=== PATIENT | male | born 1990 | race Caucasian/White ===

== ENCOUNTER 2018-07-30 08:18 | Emergency (ER) | payer MEDICAID ==
[~2018-07-30] VITALS: Ht 175.3 cm; Wt 68.2 kg
[~2018-07-30 08:18] MED LIST: GUAI600T45 PO; NO HOME MEDS
[2018-07-30 08:25] VITALS: BP 134/79
[2018-07-30] MEDS ORDERED: IBUP-1985 PO (08:51)
[2018-07-30] MEDS ORDERED: PENI500T2 PO (08:51)
== END 2018-07-30 08:57 | disposition home or self-care (01) ==
LOC: ER 08:19
DX: K08.89 Other specified disorders of teeth and supporting structures (principal); F12.90 Cannabis use, unspecified, uncomplicated
CPT/HCPCS: 99283

== ENCOUNTER 2019-09-27 10:46 | Emergency (ER) | payer MEDICAID ==
[~2019-09-27] VITALS: Ht 175.3 cm; Wt 82.0 kg
[~2019-09-27 10:46] MED LIST changes: +IBUP-1985 PO
[2019-09-27 10:47] VITALS: BP 137/92
[2019-09-27] MEDS ORDERED: PENI500T2 PO (11:33)
[2019-09-27] MEDS ORDERED: IBUP-1984 PO (11:33)
[2019-09-27] MEDS ORDERED: HYDR-4353 PO (11:33)
== END 2019-09-27 11:52 | disposition home or self-care (01) ==
LOC: ER 10:46
DX: K08.89 Other specified disorders of teeth and supporting structures (principal); F12.90 Cannabis use, unspecified, uncomplicated
CPT/HCPCS: 99283

== ENCOUNTER → 2022-04-20 | Day surgery (SDC) | payer OTHER ==
[2022-04-14 09:55] LABS: BASOPHILS # (AUTO) 0.1 X10'3 (0-0.2); BASOPHILS % (AUTO) 0.8 % (0-1); EOSINOPHILS # (AUTO) 0.3 X10'3 (0-0.9); EOSINOPHILS % (AUTO) 3.9 % (0-6); LYMPHOCYTES # (AUTO) 1.3 X10'3 (1.1-4.8); LYMPHOCYTES % (AUTO) 16.2 % (21-51); MEAN CORPUSCULAR HEMOGLOBIN 29.6 PG (27.0-31.0); MEAN CORPUSCULAR VOLUME 84.7 FL (78-98); MEAN PLATELET VOLUME 9.3 FL (7.4-10.4); MONOCYTES # (AUTO) 0.5 X10'3 (0-0.9); MONOCYTES % (AUTO) 6.7 % (2-12); NEUTROPHILS # (AUTO) 5.7 X10'3 (1.8-7.7); NEUTROPHILS % (AUTO) 72.4 % (42-75); PRE OP HEMATOCRIT 46.6 % (42.0-52.0); PRE OP HEMOGLOBIN 16.3 g/dL (14.0-17.9); PRE OP PLATELET COUNT 245 X10'3 (140-440); RED CELL DISTRIBUTION WIDTH 12.9 % (11.5-14.5)
[2022-04-14 10:21] LABS: ALBUMIN 4.2 G/DL (3.4-5.0); ALBUMIN/GLOBULIN RATIO 1.2 (1.1-1.5); ALKALINE PHOSPHATASE 76 IU/L (46-116); BLOOD UREA NITROGEN 11 MG/DL (7-18); BUN/CREATININE RATIO 12.1 (5.4-32.0); CALCIUM 8.9 MG/DL (8.5-10.1); CHLORIDE 102 MMOL/L (99-107); CREATININE 0.91 MG/DL (0.60-1.10); PRE OP ANION GAP 6 (8-16); PRE OP AST 37 U/L (10-37); PRE OP BILIRUB, TOTAL 0.6 MG/DL (0.0-1.0); PRE OP GLUCOSE 105 MG/DL (70-104); PRE OP POTASSIUM 4.3 MMOL/L (3.4-5.1); PRE OP SODIUM 138 MMOL/L (135-145); TOTAL CARBON DIOXIDE 30.3 MMOL/L (24-32); TOTAL PROTEIN 7.7 G/DL (6.4-8.2); eGFR > 90 ML/MIN
[2022-04-14 10:22] LABS: PRE OP ALT 104 U/L (30-65)
[~2022-04-20] VITALS: Ht 177.8 cm; Wt 93.2 kg
[2022-04-20] VITALS (8 sets, daily range): BP systolic 130–145; BP diastolic 87–106
[~2022-04-20] MED LIST changes: +BUPIVACAINE liposomal/PF 13.3 MG/ML vial IM ONE; +BUPIVAcaine/PF 2.5mg/ml (0.25%) 10ml vial ONE; -GUAI600T45 PO; -IBUP-1985 PO; +LIDOcaine 1% (10mg/ml)w/preservative inj. 20ml MDV ONE; +LIDOcaine 1%/PF 5ML 10 MG/ML VIAL ONE; +ceFAZolin inj. 2,000 MG in dextrose 5%-water 100 ML IV ONE; +dexamethasone sod phosphate 4mg/ml inj. ONE; +famotidine 20mg tablet PO ONE; +fentaNYL/PF 50MCG/1 ML 2ML syringe ONE; +meperidine/PF 25mg/ml syringe IV PRN; +midazolam 1 mg/ML 2ml injection ONE; +morphine 2 MG/ML inj. syringe IV PRN; +morphine 4 MG/ML inj SYRINge IV PRN; +ondansetron/PF 4mg/2ml inj IV PRN; +ondansetron/PF 4mg/2ml inj ONE; +oxyCODONE/APAP 5-325mg tablet PO PRN; +proCHLORperazine 10 MG/2 ml inj IV PRN; +propofol inj 20 ML IV ONE; +ringers solution, lacted 1,000 ML IV SCH; +rocuronium 10mg/ml inj IV ONE; +sevoflurane 250ml liquid IH ONE; +sugammadex 200mg/2ml injection IV ONE
--- NOTE | 2022-04-20 13:39 | NUR ---
Received from OR via [facility] , accompanied by Anesthesiologist YAQUELIN and report given by Anesthesiolgist. PATIENT WITH 20GPIV IN LEFT HAND RUNNING LR AT 100. PATIENT WITH ABDOMINAL BINDER IN PLACE WITH NO DRAINAGE TO DRESSINGS AT THIS TIME. 10L MASK ON WITH 100% SATURATIONS AT THIS TIME. REPOSTITIONED FOR COMFORT. Addendum: 04/20/22 at 1347 by Hao Cannon RN, RN Amended: Links added.
--- NOTE | 2022-04-20 14:49 | NUR ---
ALL DC CRITERIA FOR TRANSFER HOME HAS BEEN MET. ALL DC INSTRUCTIONS COVERED WITH PATIENT- ALL QUESTIONS ANSWERED, VSS. TAKEN OUT VIA WHEELCHAIR TO PERSONAL VEHICLE WHERE FRIEND DROVE HIM HOME. Addendum: 04/20/22 at 1520 by Hao Cannon RN, RN Amended: Links added.
== END | disposition home or self-care (01) ==
LOC: PAS 09:51
PROVIDERS: ATTEND Surgery
DX: K42.0 Umbilical hernia with obstruction, without gangrene (principal); K43.6 Other and unspecified ventral hernia with obstruction, without gangrene; Z87.891 Personal history of nicotine dependence; Z79.899 Other long term (current) drug therapy
CPT/HCPCS: 36415; 49653; 64488; 80053; 82948; 85025; C1781; C9290; J0690; J1100; J2250; J2270; J2405; J2704; J3010; J3490; J7030; J7060; J7120; S2900; Z7506; Z7508; Z7512; A4215; A4618

== ENCOUNTER 2022-05-09 15:28 | Emergency (ER) | payer OTHER, MEDICAID ==
[~2022-05-09 15:28] MED LIST changes: -BUPIVACAINE liposomal/PF 13.3 MG/ML vial IM ONE; -BUPIVAcaine/PF 2.5mg/ml (0.25%) 10ml vial ONE; -LIDOcaine 1% (10mg/ml)w/preservative inj. 20ml MDV ONE; -LIDOcaine 1%/PF 5ML 10 MG/ML VIAL ONE; -ceFAZolin inj. 2,000 MG in dextrose 5%-water 100 ML IV ONE; -dexamethasone sod phosphate 4mg/ml inj. ONE; -famotidine 20mg tablet PO ONE; -fentaNYL/PF 50MCG/1 ML 2ML syringe ONE; -meperidine/PF 25mg/ml syringe IV PRN; -midazolam 1 mg/ML 2ml injection ONE; -morphine 2 MG/ML inj. syringe IV PRN; -morphine 4 MG/ML inj SYRINge IV PRN; -ondansetron/PF 4mg/2ml inj IV PRN; -ondansetron/PF 4mg/2ml inj ONE; -oxyCODONE/APAP 5-325mg tablet PO PRN; -proCHLORperazine 10 MG/2 ml inj IV PRN; -propofol inj 20 ML IV ONE; -ringers solution, lacted 1,000 ML IV SCH; -rocuronium 10mg/ml inj IV ONE; -sevoflurane 250ml liquid IH ONE; -sugammadex 200mg/2ml injection IV ONE
== END 2022-05-09 19:26 | disposition left against medical advice (07) ==
LOC: ER 15:29
DX: Z00.8 Encounter for other general examination (principal); Z53.21 Procedure and treatment not carried out due to patient leaving prior to being seen by health care provider

== ENCOUNTER 2022-06-27 11:42 | Emergency (ER) | payer MEDICAID, OTHER ==
[~2022-06-27] VITALS: Ht 175.3 cm; Wt 95.4 kg
[2022-06-27 12:09] VITALS: BP 119/85
== END 2022-06-27 13:02 | disposition home or self-care (01) ==
LOC: ER 11:43
DX: R10.9 Unspecified abdominal pain (principal); R11.2 Nausea with vomiting, unspecified; R19.7 Diarrhea, unspecified; F31.9 Bipolar disorder, unspecified; F12.10 Cannabis abuse, uncomplicated
CPT/HCPCS: 99281

== ENCOUNTER → 2022-09-19 | Day surgery (SDC) | payer OTHER ==
[2022-09-13 11:59] LABS: BASOPHILS # (AUTO) 0.1 X10'3 (0-0.2); BASOPHILS % (AUTO) 0.8 % (0-1); EOSINOPHILS # (AUTO) 0.1 X10'3 (0-0.9); EOSINOPHILS % (AUTO) 1.3 % (0-6); LYMPHOCYTES # (AUTO) 1.2 X10'3 (1.1-4.8); LYMPHOCYTES % (AUTO) 13.5 % (21-51); MEAN CORPUSCULAR HEMOGLOBIN 28.9 PG (27.0-31.0); MEAN CORPUSCULAR HGB CONC 33.9 g/dL (33.0-36.5); MEAN CORPUSCULAR VOLUME 85.3 FL (78-98); MEAN PLATELET VOLUME 8.9 FL (7.4-10.4); MONOCYTES # (AUTO) 0.5 X10'3 (0-0.9); MONOCYTES % (AUTO) 5.8 % (2-12); NEUTROPHILS # (AUTO) 6.8 X10'3 (1.8-7.7); NEUTROPHILS % (AUTO) 78.6 % (42-75); PRE OP HEMATOCRIT 47.8 % (42.0-52.0); PRE OP HEMOGLOBIN 16.2 g/dL (14.0-17.9); PRE OP PLATELET COUNT 261 X10'3 (140-440); RED BLOOD COUNT 5.61 X10'6 (4.70-6.10); RED CELL DISTRIBUTION WIDTH 13.1 % (11.5-14.5)
[2022-09-13 12:17] LABS: ALBUMIN 4.6 G/DL (3.4-5.0); ALBUMIN/GLOBULIN RATIO 1.2 (1.1-1.5); ALKALINE PHOSPHATASE 83 IU/L (46-116); BLOOD UREA NITROGEN 18 MG/DL (7-18); BUN/CREATININE RATIO 21.4 (5.4-32.0); CALCIUM 9.3 MG/DL (8.5-10.1); CHLORIDE 101 MMOL/L (99-107); CREATININE 0.84 MG/DL (0.60-1.10); PRE OP ANION GAP 8 (8-16); PRE OP AST 40 U/L (10-37); PRE OP BILIRUB, TOTAL 0.6 MG/DL (0.0-1.0); PRE OP GLUCOSE 102 MG/DL (70-104); PRE OP POTASSIUM 3.9 MMOL/L (3.4-5.1); PRE OP SODIUM 138 MMOL/L (135-145); TOTAL CARBON DIOXIDE 28.9 MMOL/L (24-32); TOTAL PROTEIN 8.6 G/DL (6.4-8.2); eGFR > 90 ML/MIN
[2022-09-13 12:27] LABS: PRE OP ALT 81 U/L (30-65)
[~2022-09-19] VITALS: Ht 177.8 cm; Wt 92.3 kg
[2022-09-19] VITALS (8 sets, daily range): BP systolic 108–144; BP diastolic 74–91
[~2022-09-19] MED LIST changes: +BUPIVAcaine/PF 2.5 mg/ml (0.25%) 30ml vial ONE; +LIDOCAINE 1%/EPI 1:100,000 inj. 10 ML multi-dose vial ONE; +LIDOcaine 1% 30ml preserv. free vial ONE; +MIDAZolam 1 MG/ML 5ML VIAL ONE; +ceFAZolin inj. 2,000 MG in dextrose 5%-water 100 ML IV ONE; +famotidine 20mg tablet PO ONE; +fentaNYL/PF 50MCG/1 ML 2ML syringe ONE; +propofol inj 20 ML IV ONE; +ringers solution, lacted 1,000 ML IV SCH
--- NOTE | 2022-09-19 10:02 | NUR ---
Received from OR via , accompanied by Anesthesiologist ROMEO and OR NURSE report given by Anesthesiolgist. PT AWAKE AND ALERT DENIES PAIN OR DISCOMFORT. ONE LAP SITE AT UMBILICAL; CDI. PT DOES NOT NEED TO URINATE BEFORE DISCHARGE Addendum: 09/19/22 at 1017 by Manju Curtis RN Amended: Links added.
== END | disposition home or self-care (01) ==
LOC: PAS 06:54
PROVIDERS: ATTEND Surgery
DX: T81.89XA Other complications of procedures, not elsewhere classified, initial encounter (principal); Y83.8 Other surgical procedures as the cause of abnormal reaction of the patient, or of later complication, without mention of misadventure at the time of the procedure; Z79.899 Other long term (current) drug therapy; Z98.890 Other specified postprocedural states
CPT/HCPCS: 11042; 36415; 80053; 82948; 85025; 87070; 87075; 87077; 87102; 87186; J0690; J2250; J2704; J3010; J3490; J7030; J7060; J7120; Z7506; Z7512; A4215; A4618; A7000

== ENCOUNTER 2023-12-18 07:05 | Emergency (ER) | payer MEDICAID ==
[~2023-12-18] VITALS: Ht 177.8 cm; Wt 99.2 kg
[~2023-12-18 07:05] MED LIST changes: -BUPIVAcaine/PF 2.5 mg/ml (0.25%) 30ml vial ONE; -LIDOCAINE 1%/EPI 1:100,000 inj. 10 ML multi-dose vial ONE; -LIDOcaine 1% 30ml preserv. free vial ONE; -MIDAZolam 1 MG/ML 5ML VIAL ONE; -ceFAZolin inj. 2,000 MG in dextrose 5%-water 100 ML IV ONE; -famotidine 20mg tablet PO ONE; -fentaNYL/PF 50MCG/1 ML 2ML syringe ONE; -propofol inj 20 ML IV ONE; -ringers solution, lacted 1,000 ML IV SCH
[2023-12-18 07:09] VITALS: TEMP 98
[2023-12-18 08:01] LABS: BASOPHILS # (AUTO) 0.1 X10'3 (0-0.2); EOSINOPHILS # (AUTO) 0.3 X10'3 (0-0.9); HEMOGLOBIN 16.7 g/dl (14.0-17.9); LYMPHOCYTES # (AUTO) 1.4 X10'3 (1.1-4.8); LYMPHOCYTES % (AUTO) 16.8 % (21-51); MEAN CORPUSCULAR HEMOGLOBIN 29.8 PG (27.0-31.0); MEAN CORPUSCULAR HGB CONC 34.1 g/dL (33.0-36.5); MEAN CORPUSCULAR VOLUME 87.4 FL (78-98); MEAN PLATELET VOLUME 9.1 FL (7.4-10.4); MONOCYTES # (AUTO) 0.7 X10'3 (0-0.9); MONOCYTES % (AUTO) 8.1 % (2-12); NEUTROPHILS % (AUTO) 70.1 % (42-75); PLATELET COUNT 228 X10'3 (140-440); RED BLOOD COUNT 5.61 X10'6 (4.70-6.10); WHITE BLOOD COUNT 8.5 X10'3 (4.5-11.0)
[2023-12-18 08:10] LABS: ALBUMIN 4.3 G/DL (3.4-5.0); ANION GAP 10 (8-16); BLOOD UREA NITROGEN 15 MG/DL (7-18); BUN/CREATININE RATIO 16.3 (10.0-20.0); CALCIUM 9.1 MG/DL (8.5-10.1); CHLORIDE 104 MMOL/L (99-107); CREATININE 0.92 MG/DL (0.60-1.10); ETHANOL < 10 MG/DL (<10); GLUCOSE 112 MG/DL (70-104); LIPASE 26 U/L (16-77); MAGNESIUM 2.1 MG/DL (1.5-2.4); POTASSIUM 4.2 MMOL/L (3.5-5.1); SODIUM 140 MMOL/L (135-145); TOTAL CARBON DIOXIDE 26.5 MMOL/L (24-32); eCRCL 119 ML/MIN; eGFR > 90 ML/MIN
[2023-12-18 08:11] LABS: APTT 27 SECONDS (22-32); PROTHROMBIN TIME 11.1 SECONDS (9.0-12.0)
[2023-12-18 08:59] VITALS: BP 136/91; PULSE 84; RESP 18; O2SAT 99
== END 2023-12-18 09:08 | disposition home or self-care (01) ==
LOC: ER 07:06
DX: K92.2 Gastrointestinal hemorrhage, unspecified (principal); K64.8 Other hemorrhoids; F31.9 Bipolar disorder, unspecified; F12.90 Cannabis use, unspecified, uncomplicated
CPT/HCPCS: 36415; 80048; 80320; 83690; 83735; 85025; 85610; 85730; 99283

== ENCOUNTER 2024-07-15 07:57 | Emergency (ER) | payer MEDICAID ==
[~2024-07-15] VITALS: Ht 177.8 cm; Wt 103.5 kg
[2024-07-15] MEDS ORDERED: HYDR-3965 PO (08:07)
[2024-07-15] MEDS ORDERED: AMOX-117 PO (08:07)
[2024-07-15 08:09] VITALS: BP 160/110; PULSE 101; TEMP 97.9; O2SAT 97
[2024-07-15 08:26] VITALS: RESP 16
[2024-07-15] MEDS: amox tr/potassium clavulanate 875/125mg TAB PO ONE (08:26)
[2024-07-15] MEDS: HYDROcodone/acetaminophen 10/325mg tab PO ONE (08:26)
[2024-07-15] MEDS: naproxen 500mg tablet PO ONE (08:26)
== END 2024-07-15 08:29 | disposition home or self-care (01) ==
LOC: ER 07:58
DX: K04.7 Periapical abscess without sinus (principal); K02.9 Dental caries, unspecified; F12.90 Cannabis use, unspecified, uncomplicated; F31.9 Bipolar disorder, unspecified; Z79.2 Long term (current) use of antibiotics; Z72.89 Other problems related to lifestyle
CPT/HCPCS: 99284

== ENCOUNTER 2024-10-15 19:30 | Emergency (ER) | payer MEDICAID ==
[~2024-10-15] VITALS: Ht 177.8 cm; Wt 101.4 kg
[2024-10-15 19:34] VITALS: BP 144/96; PULSE 86; RESP 16; TEMP 98.1; O2SAT 98
[2024-10-15] MEDS: amox tr/potassium clavulanate 875/125mg TAB PO ONE (20:49)
[2024-10-15] MEDS ORDERED: AMOX-580 PO (20:50)
== END 2024-10-15 20:59 | disposition home or self-care (01) ==
LOC: ER 19:30
DX: K04.7 Periapical abscess without sinus (principal); F12.90 Cannabis use, unspecified, uncomplicated
CPT/HCPCS: 99283

== ENCOUNTER 2025-06-19 17:49 | Emergency (ER) | payer MEDICAID ==
[~2025-06-19] VITALS: Ht 177.8 cm; Wt 100.0 kg
[2025-06-19 17:50] VITALS: BP 151/100; PULSE 84; RESP 16; O2SAT 98
--- NOTE | 2025-06-19 18:24 | Physician Documentation ---
History of Present Illness ~ Chief Complaint: Abdominal Pain Stated Complaint: INFECTION Time Seen by MD: 18:10 Primary Medical Doctor: None HPI 34-year-old male presents to the emergency department for evaluation of drainage from his umbilical hernia site the umbilicus. Patient reports he had an umbilical hernia repair in in 2022. He reports that he had to have a revision to that repair approximately 1 year later has undergone multiple courses of antibiotics since that time. Patient reports that he frequently has drainage sometimes foul-smelling sometimes serosanguineous and purulent. Patient denies fevers chills any systemic symptoms at this time. Patient denies pain at the site unless he is hit in the abdomen. Medication Reconciliation Allergies: Coded Allergies: No Known Allergies (Unverified , 07/15/24) Miscellaneous Medications Home Med List (No Home Medications), (Reported) Past Medical History Past Medical History: Bipolar Past Surgical History: noncontributory Other Past Family History: NONE Alcohol Use: Occasionally Drug Use: marijuana Lives with: Family Lives In: Home Occupation: employed Review of Systems ROS As stated above in the HPI, otherwise all systems are reviewed and negative. Physical Exam Vital Signs: Temperature: 98.6, Source: Temporal, Heart Rate: 84, Respiratory Rate: 16, BP: 151/100, Pulse Oximetry: 98, Weight: 100.000 Oxygen Flow Rate: 0 Physical Exam VITALS: Reviewed and as above. GENERAL: Alert, no apparent distress. HEENT: Normocephalic, atraumatic, PERRL, EOMI, dry mucosa, no erythema RESPIRATORY: Lungs clear, normal breath sounds, no respiratory distress. CHEST: No accessory muscle use, no retractions CV: Regular rate, rhythm, no edema, no murmur, No: JVD GI: Soft, non-tender, bowels sounds present, no rebound, guarding, or rigidity BACK: No CVA tenderness, or swelling MUSCULOSKELETAL No deformities, no edema SKIN: Warm and dry, malodorous drainage from the umbilicus NEURO: Oriented x4, No motor or sensory deficit PSYCH: Normal mood and affect, no agitation Progress Results/Orders Results/Orders Vital Signs 06/19/25 17:50 Temp 98.6 Pulse 84 Resp 16 B/P (MAP) 151/100 Pulse Ox 98 O2 Flow Rate 0 Medical Decision Making Findings Abdominal exam without peritoneal signs. No evidence of acute abdomen at this time. Well appearing. Given work up, low suspicion for acute hepatobiliary disease (including acute cholecystitis or cholangitis), acute pancreatitis (neg lipase), PUD (including gastric perforation), acute infectious processes (pneumonia, hepatitis, pyelonephritis), acute appendicitis, vascular catastrophe, bowel obstruction, viscus perforation, or testicular torsion, diverticulitis. Presentation not consistent with other acute, emergent causes of abdominal pain at this time. History of umbilical hernia repair. Chronic drainage from site of umbilical hernia repair. Will refer patient to follow up with his surgeon. Treat with antibiotics. Strict return precautions to the ER. Follow up with his primary care provider Departure Disposition: HOME / SELF CARE / HOMELESS Impression: Primary Impression: Umbilical hernia Additional Impression: Drainage from surgical wound Condition: Stable Discharge Instructions: Umbilical Hernia, Adult Additional Instructions: History of umbilical hernia repair. Chronic drainage from site of umbilical hernia repair. Will refer patient to follow up with his surgeon. Treat with antibiotics. Strict return precautions to the ER. Follow up with or primary care provider. Please take your antibiotics until they are completed. We discussed pre and probiotics while taking antibiotics. Please follow up with your surgeon Sunday morning. Patient in the emergency department if you have any worsening or recurrent symptoms or any additional concerning symptoms that we discussed here today. Referrals: NO PRIMARY CARE PROVIDER (PCP) Prescriptions Amox Tr/Potassium Clavulanate 875/125 MG (Augmentin 875/125 MG) 875 Mg-125 Mg Tablet 1 TAB PO Q12H for 10 Days, #20 TAB Prov: MABLE DOWD 06/19/25 Education Educated: Patient Educated regarding: diagnosis, treatment, need for follow up Signature Scribe Signature: A Attestation: Scribed for Mable Dowd by LY Schafer . 06/19/25 18:33 MABLE DOWD Jun 19, 2025 18:24
[2025-06-19] MEDS ORDERED: AMOX-580 PO (18:33)
[2025-06-19 18:39] VITALS: TEMP 98.6
== END 2025-06-19 18:40 | disposition home or self-care (01) ==
LOC: ER 17:49
DX: K42.9 Umbilical hernia without obstruction or gangrene (principal); F31.9 Bipolar disorder, unspecified; F12.90 Cannabis use, unspecified, uncomplicated; Z72.89 Other problems related to lifestyle
CPT/HCPCS: 99283

== ENCOUNTER 2025-07-03 18:35 | Emergency (ER) | payer MEDICAID ==
[~2025-07-03] VITALS: Ht 177.8 cm; Wt 103.6 kg
[~2025-07-03 18:35] MED LIST changes: +SUCR1TAB PO
[2025-07-03 18:52] VITALS: BP 136/88; PULSE 87; RESP 16; TEMP 97.2; O2SAT 97
--- NOTE | 2025-07-03 21:08 | Physician Documentation ---
History of Present Illness ~ Chief Complaint: Post-operative complication Stated Complaint: POST OP COMPLICATIONS Time Seen by MD: 20:43 Primary Medical Doctor: None Source: patient Mode of Arrival: POV Exam Limitations: no limitations HPI Patient presented secondary to abdominal pain for the past three years. He states that he saw some retained suture from a surgery that he had three years ago. He has been seen multiple times with complaints of abdominal pain after the surgery. He states he has had pain since the surgery. His last visit was June 30. He was also seen on June 22 with complaints of abdominal pain. Currently on antibiotics secondary to pus coming from his abdomen. States this has improved significantly. No fevers or chills. Was asked, but otherwise denies review of systems. Tetanus within 5 years?: No Medication Reconciliation Allergies: Coded Allergies: No Known Allergies (Unverified , 07/15/24) Scheduled Sucralfate (Sucralfate), 1 TAB PO Q6H Miscellaneous Medications Home Med List (No Home Medications), (Reported) Discontinued Medications Amox Tr/Potassium Clavulanate 875/125 MG (Augmentin 875/125 MG), 1 TAB PO Q12H Discontinued Reason: Auto Discontinued Past Medical History Past Medical History: Bipolar Past Surgical History: abdominal surgery (Hernia repair) Other Past Family History: NONE Alcohol Use: Occasionally Drug Use: marijuana Lives with: Family Lives In: Home Occupation: employed Review of Systems ROS Review of systems negative except specifically documented in HPI. Physical Exam Vital Signs: RN Vital Signs have been reviewed: Yes, Temperature: 97.2, Source: Temporal, Heart Rate: 87, Respiratory Rate: 16, BP: 136/88, Pulse Oximetry: 97, Weight: 103.600 Oxygen Flow Rate: 0 Pulse Oximetry Reflects: adequate oxygenation Physical Exam General: Awake, alert, oriented. No apparent distress Respiratory: Lungs are clear to auscultation bilaterally. No respiratory distress. Chest: Normal shape and size. No accessory muscle use. Cardiovascular: Regular rate and rhythm. S1-S2. No murmur, gallop, rub. Gastrointestinal: Tenderness with palpation over the abdomen. Abdomen is large. Nondistended and soft. There is what appears to be a scab in the umbilicus. No suture material is evaluated on exam. He does have pain with palpation. Neurologic: Alert and oriented x4. Nonfocal Psychiatric: Normal mood and affect. Skin: Normal color. Warm and dry. Progress Results/Orders Results/Orders Vital Signs 07/03/25 18:52 Temp 97.2 Pulse 87 Resp 16 B/P (MAP) 136/88 Pulse Ox 97 O2 Flow Rate 0 Medical Decision Making Findings Patient complains of retained suture that he saw in his umbilicus from a surgery three years ago. While I do not see this on exam today I did review of a photo which he showed me of what appears to be blue string. He had a recent ER visit with pus coming from his abdomen which has resolved. He continues to take antibiotics. No fevers or chills. No signs and symptoms of overt infection. Discussed with him in detail. Recommend that he follow up outpatient with his primary care/surgeon. He verbalized understanding. Differential Dx:Considerations: Include: Abscess, Cellulitis, Healing wound Departure Time of Disposition: 21:06 Disposition: 01 HOME / SELF CARE / HOMELESS Impression: Primary Impression: Drainage from surgical wound Condition: Stable Additional Instructions: Her surgical wound does not show any signs of acute infection. Given his complaints of seeing possible suture material retained from a surgery over a year ago I recommend that you follow up with the surgeon. Your infection seems to be improving. Recommend that you continue your antibiotics as prescribed. Referrals: NO PRIMARY CARE PROVIDER (PCP) Education Educated: Patient Educated regarding: diagnosis, treatment, need for follow up Signature Scribe Signature: No scribe Attestation: The note accurately reflects work and decisions made by me.Carol Ann Cannon NP 07/03/25 22:07 CAROL ANN SNOW NP Jul 03, 2025 21:08
== END 2025-07-03 21:09 | disposition left against medical advice (07) ==
LOC: ER 18:35
DX: T81.49XA Infection following a procedure, other surgical site, initial encounter (principal); F31.9 Bipolar disorder, unspecified; F12.90 Cannabis use, unspecified, uncomplicated; Z98.890 Other specified postprocedural states; Z79.899 Other long term (current) drug therapy; Z72.89 Other problems related to lifestyle
CPT/HCPCS: 99281